=== PATIENT | male | born 1975 | race African-American/Black ===

== ENCOUNTER 2018-08-03 20:06 | Inpatient (IN) | payer OTHER, MEDICAID ==
[~2018-08-03] VITALS: Ht 175.3 cm; Wt 65.8 kg
[2018-08-03 20:46] LABS: CLARITY URINE CLEAR (CLEAR); COLOR URINE YELLOW (YELLOW); KETONES URINE NEGATIVE (NEGATIVE); LEUKOCYTE ESTERASE URINE NEGATIVE (NEGATIVE); NITRITE URINE NEGATIVE (NEGATIVE); OCCULT BLOOD URINE NEGATIVE (NEGATIVE); PH URINE 6.5 (4.5-8.0); PROTEIN URINE NEGATIVE (NEGATIVE); UROBILINOGEN URINE 0.2 E.U./dL (0.2-1.0)
[2018-08-03] MEDS ORDERED: MAGNESIUM/ALUMINUM HYDROXIDE/SIMETHICONE 30ML UDC PO ONE (22:15)
[2018-08-03] MEDS ORDERED: VISCOUS LIDOCAINE 2% 15 ML UDC PO ONE (22:15)
[2018-08-03] MEDS ORDERED: CLONIDINE 0.2MG TABLET PO ONE (23:45)
[2018-08-04] VITALS (8 sets, daily range): BP systolic 110–170; BP diastolic 75–116
[2018-08-04] MEDS ORDERED: HYDRALAZINE 20MG/ML VIAL IV ONE (01:00)
[2018-08-04] MEDS ORDERED: MAGNESIUM CITRATE 300ML SOLUTION PO ONE (01:00)
[2018-08-04] MEDS ORDERED: MAGNESIUM/ALUMINUM HYDROXIDE/SIMETHICONE 30ML UDC PO PRN (05:00)
[2018-08-04] MEDS ORDERED: DOCUSATE SODIUM 100MG CAPSULE PO PRN (05:00)
[2018-08-04] MEDS ORDERED: NA PHOS,M-B/NA PHOS,DI-BA ENEMA 118ML PR PRN (05:00)
[2018-08-04] MEDS ORDERED: GUAIFENESIN 200MG/10ML SUGAR FREE UDC PO PRN (05:00)
[2018-08-04] MEDS ORDERED: ACETAMINOPHEN 325MG TABLET PO PRN (05:00)
[2018-08-04] MEDS ORDERED: LORAZEPAM 2MG/ML CPJ IV PRN (05:00)
[2018-08-04] MEDS ORDERED: IPRATROPIUM/ALBUTEROL 0.5-3(2.5)MG/3ML NEB INH PRN (05:00)
[2018-08-04] MEDS ORDERED: HYDROCODONE/ACETAMINOPHEN 5/325MG TABLET PO PRN (05:00)
[2018-08-04] MEDS ORDERED: ONDANSETRON HCL 4MG/2ML INJ IV PRN (05:00)
[2018-08-04] MEDS ORDERED: DIPHENHYDRAMINE 50MG/ML VIAL IV PRN (05:00)
[2018-08-04] MEDS ORDERED: HYDROMORPHONE HCL/PF 2MG/ML CPJ IV PRN (05:00)
[2018-08-04] MEDS: CLONIDINE 0.1MG TABLET PO PRN (05:34)
[2018-08-04] MEDS ORDERED: ENOXAPARIN 40MG/0.4ML SYR SUBCUT NR (06:00)
[2018-08-04] MEDS: ASPIRIN 81MG EC TABLET PO SCH (08:44)
[2018-08-04] MEDS: AMLODIPINE 10MG TABLET PO SCH (08:45)
[2018-08-04] MEDS ORDERED: ENOXAPARIN 40MG/0.4ML SYR SUBCUT SCH (09:00)
[2018-08-04 10:26] LABS: CHLORIDE 107 mEq/L (98-107)
[2018-08-04 17:16] LABS: CREATINE KINASE 70 IU/L (39-308)
[2018-08-04 17:17] LABS: CREATINE KINASE MB FRACTION < 1.0 ng/mL (0.5-3.6)
[2018-08-05] VITALS: BP 141/100
[2018-08-05 01:05] LABS: CREATINE KINASE 69 IU/L (39-308)
[2018-08-05 01:06] LABS: CREATINE KINASE MB FRACTION < 1.0 ng/mL (0.5-3.6)
[2018-08-05 04:00] VITALS: BP 139/91
[2018-08-05 06:37] LABS: BASOPHILS % 0.4 % (0.0-2.0); EOSINOPHILS % 4.6 % (0.0-5.0); HEMATOCRIT. 42.8 % (42.0-52.0); HEMOGLOBIN. 14.7 g/dL (14.0-18.0); LYMPHOCYTES % 34.2 % (20.0-50.0); MEAN CORPUSCULAR HEMOGLOBIN 31.3 pg (28.0-32.0); MEAN CORPUSCULAR VOLUME 91.2 fL (80.0-94.0); MEAN PLATELET VOLUME 9.9 fl (7.4-10.4); NEUTROPHILS % 48.8 % (40.0-76.0); PLATELET 249 x1000/uL (130-400); RED CELL DISTRIBUTION WIDTH 14.4 % (11.6-14.6)
[2018-08-05 08:00] VITALS: BP 162/110
[2018-08-05] MEDS: ASPIRIN 81MG EC TABLET PO SCH (08:01)
[2018-08-05] MEDS: AMLODIPINE 10MG TABLET PO SCH (08:01)
[2018-08-05 08:27] LABS: CHLORIDE 107 mEq/L (98-107)
[2018-08-05 08:37] LABS: CREATINE KINASE MB FRACTION < 1.0 ng/mL (0.5-3.6); LDL CHOLESTEROL 141 mg/dL (5-100)
[2018-08-05 08:38] LABS: CREATINE KINASE 67 IU/L (39-308)
[2018-08-05 08:39] LABS: HDL CHOLESTEROL 31 mg/dL (40-59); T4 FREE 1.12 ng/dL (0.76-1.46)
[2018-08-05] MEDS: CLONIDINE 0.1MG TABLET PO PRN (11:39)
[2018-08-05 12:00] VITALS: BP 167/109
[2018-08-05 14:46] VITALS: BP 167/109
== END 2018-08-05 16:03 | disposition home or self-care (01) | DRG 241 ==
LOC: ER 20:06 → EDBEDREQ 08-04 01:41 → EDBEDREQTM 08-04 01:41 → 8WST 08-04 01:47 → EDBEDREQTM 08-04 02:04 → EDBEDREQ 08-04 02:04 → ENRESERV 08-04 02:48
PROVIDERS: ADMIT Internal Medicine; ATTEND Internal Medicine
DX: K29.70 Gastritis, unspecified, without bleeding (principal); F17.200 Nicotine dependence, unspecified, uncomplicated; I10 Essential (primary) hypertension
CPT/HCPCS: 36415; 74021; 80048; 80061; 82550; 82553; 83036; 83880; 84439; 84443; 84484; 85379; 93005; 93306; 96374; 99291; J0360; J1650